=== PATIENT | female | born 1970 | race Caucasian/White ===

== ENCOUNTER 2021-01-27 16:45 | Inpatient (IN) ==
[2021-01-27] MEDS ORDERED: PIPERACILLIN/TAZOBACTAM 4.5 GM/120 ML BAG IV ONE (17:47)
[2021-01-27 18:14] LABS: Basophils # (auto) 0.01 K/uL (0-0.2); Basophils % (auto) 0.1 %; Eosinophils # (auto) 0.15 K/uL (0-0.5); Eosinophils % (auto) 2.1 %; Hematocrit (blood only) 40.9 % (37-47); Immature Granulocytes # (auto) 0.01 K/uL (0.00-0.02); Immature Granulocytes % (auto) 0.1 %; Lymphocytes # (auto) 2.21 K/uL (1.2-3.4); Mean Corpuscular Hemoglobin 25.5 pg (25-34); Mean Corpuscular Hgb Conc 31.8 g/dL (32-36); Mean Corpuscular Volume 80.2 fL (80-100); Mean Platelet Volume 9.1 fL (7.4-10.4); Monocytes % (auto) 5.6 %; Neutrophils # (auto) 4.34 K/uL (1.4-6.5); Neutrophils % (auto) 61.1 %; Platelet Count 351 K/uL (130-400); RDW Coefficient of Variation 15.4 % (11.5-14.5); RDW Standard Deviation 45.1 fL (36.4-46.3); White Blood Count 7.12 K/uL (4.8-10.8)
[2021-01-27 18:30] LABS: Partial Thromboplastin Ratio 0.9; Partial Thromboplastin Time 24.2 Seconds (21.0-31.0); Prothrombin Time 10.2 Seconds (9.0-12.0)
[2021-01-27 18:34] LABS: Albumin Level 4.5 gm/dl (3.4-5.0); BUN Creatinine Ratio 15.9 (10-20); Calcium 9.1 mg/dl (8.5-10.1); Creatinine Clr Calc Pharmacy 99.3 ml/min; Est GFR (African American) 112.4; Potassium 3.8 mmol/L (3.5-5.1)
[2021-01-27 18:36] LABS: Bilirubin,Total 0.5 mg/dl (0.2-1); Globulin 4.4 gm/dl (2.5-4.0); Total Protein 8.9 gm/dl (6.4-8.2)
[2021-01-27] MEDS ORDERED: SODIUM CHLORIDE 0.9% 1000ML 500 ML IV ONE (19:14)
--- NOTE | 2021-01-27 19:20 | History & Physical Report ---
Date of Service January 27, 2021 Assessment & Plan (1) Diverticulitis of intestine with perforation: Pt is 50 y/o F without significant past medical history presented to ER with complaint of right sided abdominal pain x 2 days. Denies fever/chills, N/V/D/C In ER pt afebrile, vitals stable 01/27/[address] ABD/PELVIS: Findings consistent with acute sigmoid diverticulitis with contained perforation. Several locules of extraluminal gas and a 1.8 cm gas and fluid containing collection suggestive of a developing peridiverticular abscess although this contains predominantly gas. No leukocytosis In ER given Zosyn -Blood cultures pending -Continue Zosyn -IV fluids -N.p.o. -General surgery consult, ER provider contacted on-call and is aware -CBC, BMP in a.m. (2) Hepatic lesion: CT ABD/PELVIS: 2.4 cm central hepatic lesion which demonstrates probable enhancement. This is not overtly suspicious but is indeterminate and a nonemergent liver MRI with and without contrast is recommended. Given diverticulitis, a hepatic abscess is within the differential although considered less likely. MRI will likely better differentiate between these two possibilities. Outpatient records reviewed patient with history CT abdomen pelvis on 01/16/2012: Impression: Mildly irregular hypodensity in the anterior right hepatic lobe demonstrating mild heterogeneous peripheral enhancement measuring 2.2 x 1.3 cm, not definitively seen on the delayed images, may represent a hemangioma. Consider an MRI of the liver with and without IV contrast for further evaluation. Scattered sigmoid diverticula. -We will obtain MRI DVT Prophylaxis -SCDs Full Code as per discussion with pt Follows with Dr Barnett for routine care Pt was seen and care coordinated with Dr Mendez. See addendum History of Present Illness Chief Complaint: Abdominal pain Primary Care Provider: Davie Barnett DO Pt is 50 y/o F without significant past medical history presented to ER with complaint of abdominal pain x 2 days. Patient reports aching pain to right side of abdomen and intermittent right upper quadrant stabbing pain with movement starting 2 days ago. Patient saw PCP yesterday. Today she had outpatient CT scan abdomen and pelvis which showed perforated diverticulitis and was referred to ER. Currently reports is comfortable sitting still. Does have pain to right side abdomen with movement. Denies nausea, vomiting, diarrhea, constipation. Patient reports history of chronic intermittent abdominal and pelvic pain prior to onset of menses however this feels different. LMP 01/20/21. Reports currently finishing menses.Denies fever/chills, diaphoresis, dizziness, syncope, vision changes, neck pain, CP, SOB, orthopnea, palpitations, cough, sore throat, choking, otalgia, rhinorrhea, paresthesias, weakness, extremity weakness, extremity edema, rashes, urinary symptoms. Allergies Allergy/AdvReac Type Severity Reaction Status Date / Time ciprofloxacin AdvReac Severe VIOLENT Verified 01/27/21 18:32 VOMITING POLLEN Allergy Intermediate RUNNY Uncoded 01/27/21 18:32 NOSE, SNEEZING Home Medications Medication Instructions Recorded Confirmed Type amoxicillin-pot clavulanate 1 tab PO BID 01/27/21 01/27/21 History cetirizine 10 mg PO DAILY PRN 01/27/21 01/27/21 History Past Med/Surg History Medical History Allergic rhinitis GERD (gastroesophageal reflux disease) Surgical History H/O umbilical hernia repair Family History Other Family history unknown Social History Smoking Status: Former smoker Tobacco Type: Cigarettes Hx Alcohol Use: Yes Alcohol Intake Frequency: Monthly or Less Hx Substance Use: No Preferred Language: Armenian Feels Safe at Home: Yes Review of Systems Review of Systems: All systems reviewed & are unremarkable except as noted in HPI & below Physical Exam Physical Exam: General: no distress, WDWN Head: normocephalic, atraumatic Eyes: conjunctiva non-injected, anicteric ENT: normal inspection external ears, nose, mucous membranes moist Neck: supple, trachea midline Lungs: clear, no respiratory distress, no wheezing/rhonchi/rales CV: RRR, no murmur, no pretibial edema Abd: normal BS, soft,mild tenderness to palpation RLQ without rebound Ext: no cyanosis, no calf tenderness Neuro: A&O x 3, no focal deficits noted, normal affect Skin: warm, dry Results & Data Results & Data ([facility]) Vital Signs (Past 12 Hours) Vital Signs Temp Pulse Pulse Resp BP BP Pulse Ox 01/27/21 19:08 69 16 132/73 97 01/27/21 18:08 18 130/81 99 01/27/21 18:06 81 19 130/81 99 01/27/21 17:07 37.1 C 79 18 123/75 98 Laboratory Results Short CBC 01/27/21 Range/Units 18:01 WBC 7.12 (4.8-10.8) K/uL Hgb 13.0 (12.0-16.0) g/dL Hct 40.9 (37-47) % Plt Count 351 (130-400) K/uL BMP 01/27/21 18:02 Sodium 139 Potassium 3.8 Chloride 107 Carbon Dioxide 26 BUN 11 Creatinine 0.72 Glucose 84 Calcium 9.1 Liver Function 01/27/21 Range/Units 18:02 Total Bilirubin 0.5 (0.2-1) mg/dl AST 9 L (15-37) U/L ALT 32 (12-78) U/L Alkaline Phosphatase 62 (45-117) U/L Albumin 4.5 (3.4-5.0) gm/dl Diagnostic Findings CT OF THE ABDOMEN AND PELVIS WITH CONTRAST CLINICAL HISTORY: Right-sided abdominal pain. Evaluate for diverticulitis. COMPARISON STUDY: None. TECHNIQUE: Following IV administration of 89 mL of Optiray, axial images of the abdomen and pelvis were obtained from the lung bases to the proximal femurs. Images were reviewed in the axial, sagittal, and coronal planes. IV contrast was administered without complication. Automated exposure control was utilized for the study. A dose lowering technique was utilized adhering to the principles of ALARA. Oral contrast was administered. CT DOSE: 885.10 mGycm FINDINGS: Lung bases are unremarkable. A 1.2 cm water attenuation inferior right hepatic lobe lesion reflects a cyst. A septated water attenuation 3 cm lateral segment lesion likely reflects a cyst. There is an indeterminate mixed attenuation 2.4 cm central hepatic lesion on image 94 of 456. This has probable enhancement. There is no biliary or pancreatic ductal dilatation. The spleen, adrenal glands, kidneys and pancreas are normal. There is no biliary or pancreatic ductal dilatation. No evidence for a bowel obstruction. The appendix is normal. Sigmoid diverticulosis is noted. There is mild wall thickening and mild infiltration adjacent to the mid sigmoid colon. A few locules of extraluminal gas are present. There is an associated 1.8 cm gas and fluid containing collection along the superior aspect of the sigmoid colon. This has a thickened wall. No acute fracture or suspicious lesion is identified within the visualized skeletal structures. There is no hydronephrosis. IMPRESSION: 1. Findings consistent with acute sigmoid diverticulitis with contained perforation. Several locules of extraluminal gas and a 1.8 cm gas and fluid containing collection suggestive of a developing peridiverticular abscess although this contains predominantly gas. 2. 2.4 cm central hepatic lesion which demonstrates probable enhancement. This is not overtly suspicious but is indeterminate and a nonemergent liver MRI with and without contrast is recommended. Given diverticulitis, a hepatic abscess is within the differential although considered less likely. MRI will likely better differentiate between these two possibilities. ACT 112: Positive. There are findings on this exam that require communication between the performing entity and the patient following Patient Test Result Information Act ([place] Act 112) guidelines. Electronically signed by: Tejinder Pagan M.D. 01/27/2021 1:16 PM Code Status & VTE Plan VTE Prophylaxis Plan VTE Prophylaxis will be ordered: Yes Supervising Physician Co-Signing Physician Notes Care coordinated with Lucia Kathleen PA-C. Agree with above note. Patient seen and examined. Please refer to her notes for full details. Vital signs reviewed. Physical exam: General exam: Alert and oriented. Not in acute distress. CVS: S1 and S2 heard, regular rate and rhythm, no murmurs. RS: Clear to auscultation, no wheezing or crackles. ABD: Soft, bowel sounds present, mild right abdomen tenderness, no distention. CLIENT SERVICES ANALYST: Nonfocal. EXT: No edema, no erythema. Labs: Reviewed. Assessment and plan: 50f with two day hx of abdominal pain and ct scan showing acute right sided diverticulitis with contained perforation Acute diverticulitis right sided npo, fluids, iv zosyn pain control Surgery consult Hepatic lesions Will follow with MRI Other diagnosis and plan of care as per Lucia Kathleen PA-C . Frank wan MD.
[2021-01-27 19:26] LABS: Influenza A virus by PCR Negative (Neg); Influenza B virus by PCR Negative (Neg); RSV by PCR Negative (Neg); SARS CoV2 RNA(COVID-19) InHosp NEGATIVE (Negative)
--- NOTE | 2021-01-27 21:18 | Surgery Consultation ---
Date of Consultation January 27, 2021 Assessment & Plan (1) Diverticulitis of intestine with perforation: Due to the patient's diverticulitis and abscess she has been admitted to the hospital on the medical service. We will proceed as follows: Maintain n.p.o. status Provide IV fluid for hydration Continue antibiotics. The patient has received her initial dose of Zosyn in the emergency department should continue Provide analgesics Provide antiemetics I discussed with the patient that ideally we would like to resolve her current infectious process prior to entertaining any surgical intervention. Once her current infection is stabilized discussion can be entertained concerning esperanza ctive surgery as the patient has had multiple episodes of diverticulitis. I have explained to her however that if emergency surgery is needed she would certainly need a colostomy and if elective procedure can be performed this can hopefully be avoided. We will continue to follow along while the patient is hospitalized. Supervising Physician Co-Signing Physician Notes History, labs and imaging reviewed, agree with above. 50 y/o female with diverticulitis with contained microperforation and possible abscess. Will plan for non operative management, patient may benefit from elective sigmoidectomy. IV abx, npo, ivf's. May need colonoscopy if hasn't had one recently. History of Present Illness Reason for Consultation: Abdominal pain History of Present Illness This is a 50-year-old female who presented to the emergency department at the recommendation of her outpatient primary care physician. The patient notes that she was diagnosed with diverticular disease in December 2019. Patient notes that since this time up to today's emergency room visit she has been on antibiotics for times, each time being for suspected diverticulitis. Patient says that she did have a colonoscopy last summer and she notes that she did have some polyps removed that were noncancerous. She was also noted to have diverticular disease but no other concerning findings were noted. Patient noted that about 48 hours ago she developed some generalized abdominal pain. She denies any fevers, shakes, chills. She denies any nausea or vomiting. She denies any diarrhea, melena, or bright blood per rectum. Notes that her bowels have been working normally. She notes that she does have a slightly decreased appetite. As of her symptomatology she sought medical care with her primary care physician who ordered a CT scan of her abdomen which was performed as an outpatient today. Patient's outpatient CT scan was independently reviewed by myself along with laboratories that were obtained in the emergency department today. The CT scan she underwent today revealed evidence of sigmoid diverticulitis with a contained perforation. With this perforation she was noted to have approximately 1.8 cm peridiverticular abscess. In addition a 2.4 cm central hepatic lesion was noted. Labs consisted of a CBC where her white blood cell count, hemoglobin, hematocrit, and platelet count were all noted be within normal range. Chemistry profile revealed her sodium, potassium, BUN, and creatinine were all within normal range. She did have a Covid test noted to be negative. At the time of my interview she is resting comfortably in bed in no distress. Allergies Allergy/AdvReac Type Severity Reaction Status Date / Time ciprofloxacin AdvReac Severe VIOLENT Verified 01/27/21 18:32 VOMITING POLLEN Allergy Intermediate RUNNY Uncoded 01/27/21 18:32 NOSE, SNEEZING Home Medications Medication Instructions Recorded Confirmed Type amoxicillin-pot clavulanate 1 tab PO BID 01/27/21 01/27/21 History cetirizine 10 mg PO DAILY PRN 01/27/21 01/27/21 History Patient History Medical History Allergic rhinitis GERD (gastroesophageal reflux disease) Surgical History H/O umbilical hernia repair Family History Other Family history unknown Social History Smoking Status: Former smoker Tobacco Type: Cigarettes Smoking End Date: 16 years ago; Hx Alcohol Use: Yes Alcohol type: beer Alcohol Intake Frequency: Monthly or Less Hx Substance Use: No Preferred Language: Zimbabwean Nailing Machine Operator Required: No Beliefs That Will Affect Care: None Current Living Situation: Spouse and Family Current Living Situation Comment: and kids Feels Safe at Home: Yes Safety Concerns: Feels Safe At This Time Assistive Devices: Glasses Review of Systems Constitutional: no fever, no chills and no fatigue Eyes: no diplopia Ear, Nose, Mouth, Throat: no ear pain Respiratory: no cough and no dyspnea Cardiovascular: no chest pain Gastrointestinal: + abdominal pain; no nausea, no vomiting, no diarrhea/loose stools and no blood in stools Genitourinary: no dysuria Musculoskeletal: no back pain Integumentary: no rash Neurologic: no generalized weakness Physical Exam Constitutional: well developed and well nourished; no acute distress Eyes: no conjunctival abnormality ENMT: Ears: no hearing impairment Neck: trachea midline Respiratory: normal respiratory effort, lungs clear to auscultation Cardiovascular: Rate/Rhythm: regular rate and regular rhythm Gastrointestinal (Abdomen): Abdomen is soft and nondistended. Bowel sounds are present. Patient did have pain with deep palpation which was greatest on the right side of her abdomen. There is no rebound tenderness or guarding. Musculoskeletal: No calf tenderness Skin: no rashes, warm and dry Neurologic: moves all extremities Psychiatric: A+Ox3, euthymic affect Results & Data ([facility]) Vital Signs (Past 12 Hours) Vital Signs Temp Pulse Pulse Resp BP BP Pulse Ox 01/27/21 20:30 61 16 118/73 98 01/27/21 19:08 69 16 132/73 97 01/27/21 18:08 18 130/81 99 01/27/21 18:06 81 19 130/81 99 01/27/21 17:07 37.1 C 79 18 123/75 98 PG Care Time/CCT Total # of Minutes Spent Total Time Spent with Patient: Total time spent is greater than 50% in coordination of care (as documented) at patient's floor/unit and/or counseling patient: Coding Level of Care Code 83324 Inpt Consult Level 5 Diagnoses Diverticulitis of intestine with perforation K57.80
[2021-01-27 21:34] LABS: Pregnancy Test, Urine Negative (Negative)
[2021-01-27] MEDS ORDERED: SODIUM CHLORIDE 0.9% 1000ML 1,000 ML IV SCH (22:20)
[2021-01-27] MEDS ORDERED: ONDANSETRON INJ 2 MG/ML 2 ML VIAL IV PRN (22:20)
[2021-01-27] MEDS ORDERED: ACETAMINOPHEN 1000 MG/100 ML IV IV PRN (22:20)
[2021-01-27] MEDS ORDERED: PIPERACILL/TAZOBAC CONSULT ACTIVE PRN (22:59)
[2021-01-27] MEDS: D5W AND NSS 1,000 ML IV SCH (23:13)
[2021-01-27] MEDS: PIPERACILLIN/TAZOBACTAM 3.375 GM in DEXTROSE 5% 100 ML IV SCH (23:54)
--- NOTE | 2021-01-28 00:29 | Emergency Department Note ---
History of Present Illness General Chief Complaint: Illness Stated Complaint: SENT BY / STOMACH PAINS Time Seen by Provider: 01/27/21 17:38 History of Present Illness Provider Complaint: abdominal pain Onset (ago): 2 day(s) Pain Consistency: constant Location: RUQ Radiation: none Severity: moderate Maximum Pain Intensity: 5 Current Pain Intensity: 5 Quality: + aching Relieved By: + nothing Exacerbated By: + nothing Context: no foreign travel, no recent antibiotic use and no recent surge ry/procedure Associated Symptoms: no nausea, no vomiting, no diarrhea, no fever, no chills, no constipation, no dysuria, no hematemesis, no hematochezia, no melena, no hematuria and no anorexia Patient states her PCP ordered her an outpatient CT scan and she was instructed to come to the emergency department. Related Data Patient Confirmed : No Home Medications Medication Instructions Recorded Confirmed Type amoxicillin-pot clavulanate 1 tab PO BID 01/27/21 01/27/21 History cetirizine 10 mg PO DAILY PRN 01/27/21 01/27/21 History Allergies Allergy/AdvReac Type Severity Reaction Status Date / Time ciprofloxacin AdvReac Severe VIOLENT Verified 01/27/21 18:32 VOMITING POLLEN Allergy Intermediate RUNNY Uncoded 01/27/21 18:32 NOSE, SNEEZING Past Med/Surg History Medical History Allergic rhinitis GERD (gastroesophageal reflux disease) Surgical History H/O umbilical hernia repair Family History Other Family history unknown Social History Smoking Status: Former smoker Tobacco Type: Cigarettes Smoking End Date: 16 years ago; Hx Alcohol Use: Yes Alcohol type: beer Alcohol Intake Frequency: Monthly or Less Hx Substance Use: No Preferred Language: Armenian 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 Beliefs That Will Affect Care: None Current Living Situation: Spouse and Family Current Living Situation Comment: and kids Feels Safe at Home: Yes Safety Concerns: Feels Safe At This Time Assistive Devices: Glasses Review of Systems A total of 10 systems reviewed and were otherwise negative Physical Exam Vital Signs: Vital Signs - 24 hr 01/27/21 17:07 01/27/21 18:06 01/27/21 18:08 Temperature 37.1 C Temperature Source Temporal Artery Sc an Pulse Rate 79 81 Pulse Rate from Sp O2 Sensor 85 Pulse Rhythm [Righ t Finger] Regular Respiratory Rate 18 19 18 Respiratory Effort / Characteristics Non-Labored Sponta neous Non-Labored Respiratory Depth Normal Normal Respiratory Patter n Regular Blood Pressure 123/75 130/81 Blood Pressure [Le ft Arm] 130/81 Blood Pressure Vidya n 91 97 Blood Pressure Vidya n [Left Arm] 97 Blood Pressure Pos ition Sitting Blood Pressure Pos ition [Left Arm] Lying Pulse Oximetry 98 99 99 Oxygen Delivery Me thod Room Air Room Air Sepsis Recent Feve r Within 48 Hours No Sepsis New/Unexpla ined Change in Men maylin Status N/A Sepsis Action Take n by Nursing No Action Required Physical Exam: Physical Exam GENERAL: She is oriented to person, place, and time. She appears well-developed and well-nourished. She does not appear distressed. HENT: Exam performed. -Head: Normocephalic and atraumatic. -Right Ear: External ear normal. No mastoid tenderness. -Left Ear: External ear normal. No mastoid tenderness. -Mouth/Throat: The oropharynx is clear and moist. No trismus in the jaw. No dental abscesses or uvula swelling. No oropharyngeal exudate or tonsillar abscesses. EYES: Conjunctivae and EOM are normal. Pupils are equal, round, and reactive to light. Right eye exhibits no discharge. Left eye exhibits no discharge. No scleral icterus. NECK: Normal range of motion. Neck supple. No JVD present. No spinous process tenderness present. No carotid bruit present. No rigidity. No tracheal deviation and normal range of motion present. No Brudzinski's sign and no Kernig's sign noted. CV: Normal rate, regular rhythm, normal heart sounds and intact distal pulses. There is no peripheral edema. Palpable radial pulses bue. PULM/CHEST: Effort normal and breath sounds normal. No respiratory distress. No stridor. She has no wheezes. She has no rales. -Chest Wall: She exhibits no tenderness. ABD: The abdomen is soft. Bowel sounds are normal. She has no distension. No mass is present. There is no tenderness. There is no rebound, no guarding, no Au's sign and no tenderness at McBurney's point. Rovsig negative MUSC/SKEL: Normal range of motion. There is no peripheral edema, tenderness or deformity. LYMPH: No cervical adenopathy. NEURO: She is alert and oriented to person, place, and time. She has normal strength. No cranial nerve deficit or sensory deficit. Coordination and gait normal. GCS eye subscore is 4. GCS verbal subscore is 5. GCS motor subscore is 6. Cerebellar tests wnl. SKIN: Skin is warm and dry. She is not diaphoretic. PSYCH: She has a normal mood and affect. Behavior is normal. Judgment and thought content normal. Course Course 1738: The patient was evaluated in room A12. A complete history and physical exam was performed Cardiac monitoring: An order was placed for continuous cardiac monitoring. The monitor shows a rate of 50 with sinus rhythm EMR reviewed. Patient had outpatient CT scan done of the abdomen today which showed sigmoid diverticulitis with contained perforation. Locules of extraluminal gas and 1.8 cm gas and fluid containing structure suggestive of a developing peridiverticular abscess which contains predominantly gas. 1748: Spoke with Dr. Hansen on-call general surgery. He states that the patient should be admitted to medicine and get IV antibiotics. No need for emergent drainage or IR evaluation at this point. Zosyn ordered for the patient. Patient will be admitted to the [facility] team spoke with Tameka who stated to admit to Dr. Mendez Administered Medications Dextrose/Sodium Chloride (D5w And Nss) 1,000 mls @ 125 mls/hr IV .Q8H VU Stop: 02/26/21 22:29 Last Admin: 01/27/21 23:13 Dose: 125 mls/hr Documented by: [id number] Piperacillin Sod/Tazobactam (Sod 3.375 gm/ Dextrose) 115 mls @ 28.75 mls/hr IV Q8H [facility]; Protocol Stop: 02/07/21 00:00 Last Admin: 01/27/21 23:54 Dose: 28.8 mls/hr Documented by: [id number] Discontinued Medications Piperacillin Sod/Tazobactam Sod (Zosyn) 4.5 gm in 120 mls @ 240 mls/hr IV NOW ONE Stop: 01/27/21 18:16 Last Infusion: 01/27/21 18:52 Dose: 0 mls/hr Documented by: [id number] Admin: 01/27/21 18:22 Dose: 240 mls/hr Documented by: [id number] Sodium Chloride (Nss 1000ml) 500 mls @ 999 mls/hr IV .Q31M ONE Stop: 01/27/21 19:44 Last Infusion: 01/27/21 20:03 Dose: 0 mls/hr Documented by: [id number] Admin: 01/27/21 19:32 Dose: 999 mls/hr Documented by: [id number] Sodium Chloride (Nss 1000ml) 1,000 mls @ 100 mls/hr IV .Q10H VU Stop: 01/28/21 18:19 Last Admin: 01/27/21 22:44 Dose: Not Given Documented by: [id number] Medical Decision Making Laboratory Data Result diagrams: 01/27/21 18:01 01/27/21 18:02 Lab Results 01/27/21 01/27/21 01/27/21 Range/Units 18:01 18:02 18:02 WBC 7.12 (4.8-10.8) K/uL RBC 5.10 (4.2-5.4) M/uL Hgb 13.0 (12.0-16.0) g/dL Hct 40.9 (37-47) % MCV 80.2 (80-100) fL MCH 25.5 (25-34) pg MCHC 31.8 L (32-36) g/dL RDW Std Deviation 45.1 (36.4-46.3) fL RDW Coeff of Elzbieta 15.4 H (11.5-14.5) % Plt Count 351 (130-400) K/uL MPV 9.1 (7.4-10.4) fL Immature Gran % (Auto) 0.1 % Neut % (Auto) 61.1 % Lymph % (Auto) 31.0 % Amite % (Auto) 5.6 % Eos % (Auto) 2.1 % Baso % (Auto) 0.1 % Neut # (Auto) 4.34 (1.4-6.5) K/uL Lymph # (Auto) 2.21 (1.2-3.4) K/uL Amite # (Auto) 0.40 (0.11-0.59) K/uL Eos # (Auto) 0.15 (0-0.5) K/uL Baso # (Auto) 0.01 (0-0.2) K/uL Immature Gran # (Auto) 0.01 (0.00-0.02) K/uL PT 10.2 (9.0-12.0) Seconds INR 1.0 (0.9-1.1) APTT 24.2 (21.0-31.0) Seconds PTT Ratio 0.9 Sodium 139 (136-145) mmol/L Potassium 3.8 (3.5-5.1) mmol/L Chloride 107 (98-107) mmol/L Carbon Dioxide 26 (21-32) mmol/L Anion Gap 6.0 (3-11) BUN 11 (7-18) mg/dl Creatinine 0.72 (0.6-1.2) mg/dl Est Cr Clr Drug Dosing 99.3 ml/min Est GFR ( Amer) 112.4 Est GFR (Non-Af Amer) 97.0 BUN/Creatinine Ratio 15.9 (10-20) Glucose 84 (70-99) mg/dl Calcium 9.1 (8.5-10.1) mg/dl Total Bilirubin 0.5 (0.2-1) mg/dl AST 9 L (15-37) U/L ALT 32 (12-78) U/L Alkaline Phosphatase 62 (45-117) U/L Total Protein 8.9 H (6.4-8.2) gm/dl Albumin 4.5 (3.4-5.0) gm/dl Globulin 4.4 H (2.5-4.0) gm/dl Albumin/Globulin Ratio 1.0 (0.9-2) Lipase 122 (73-393) U/L COVID-19 Eval Order SARS-CoV-2 (PCR) (Negative) Influenza Type A (PCR) (Neg) Influenza Type B (PCR) (Neg) RSV (RT-PCR) (Neg) 01/27/21 01/27/21 Range/Units 18:15 18:15 WBC (4.8-10.8) K/uL RBC (4.2-5.4) M/uL Hgb (12.0-16.0) g/dL Hct (37-47) % MCV (80-100) fL MCH (25-34) pg MCHC (32-36) g/dL RDW Std Deviation (36.4-46.3) fL RDW Coeff of Elzbieta (11.5-14.5) % Plt Count (130-400) K/uL MPV (7.4-10.4) fL Immature Gran % (Auto) % Neut % (Auto) % Lymph % (Auto) % Amite % (Auto) % Eos % (Auto) % Baso % (Auto) % Neut # (Auto) (1.4-6.5) K/uL Lymph # (Auto) (1.2-3.4) K/uL Amite # (Auto) (0.11-0.59) K/uL Eos # (Auto) (0-0.5) K/uL Baso # (Auto) (0-0.2) K/uL Immature Gran # (Auto) (0.00-0.02) K/uL PT (9.0-12.0) Seconds INR (0.9-1.1) APTT (21.0-31.0) Seconds PTT Ratio Sodium (136-145) mmol/L Potassium (3.5-5.1) mmol/L Chloride (98-107) mmol/L Carbon Dioxide (21-32) mmol/L Anion Gap (3-11) BUN (7-18) mg/dl Creatinine (0.6-1.2) mg/dl Est Cr Clr Drug Dosing ml/min Est GFR ( Amer) Est GFR (Non-Af Amer) BUN/Creatinine Ratio (10-20) Glucose (70-99) mg/dl Calcium (8.5-10.1) mg/dl Total Bilirubin (0.2-1) mg/dl AST (15-37) U/L ALT (12-78) U/L Alkaline Phosphatase (45-117) U/L Total Protein (6.4-8.2) gm/dl Albumin (3.4-5.0) gm/dl Globulin (2.5-4.0) gm/dl Albumin/Globulin Ratio (0.9-2) Lipase (73-393) U/L COVID-19 Eval Order CovFluRsv at [facility] SARS-CoV-2 (PCR) NEGATIVE (Negative) Influenza Type A (PCR) Negative (Neg) Influenza Type B (PCR) Negative (Neg) RSV (RT-PCR) Negative (Neg) [facility] Narrative 1738: The patient was evaluated in room A12. A complete history and physical exam was performed Cardiac monitoring: An order was placed for continuous cardiac monitoring. The monitor shows a rate of 50 with sinus rhythm EMR reviewed. Patient had outpatient CT scan done of the abdomen today which showed sigmoid diverticulitis with contained perforation. Locules of extraluminal gas and 1.8 cm gas and fluid containing structure suggestive of a developing peridiverticular abscess which contains predominantly gas. 1748: Spoke with Dr. Hansen on-call general surgery. He states that the patient should be admitted to medicine and get IV antibiotics. No need for emergent drainage or IR evaluation at this point. Zosyn ordered for the patient. Patient will be admitted to the [facility] team spoke with Tameka who stated to admit to Dr. Mendez Impression & Plan Diverticulitis of intestine with perforation Discharge Plan Visit Data Chief Complaint: Illness Stated Complaint: SENT BY DR/ STOMACH PAINS ED Provider: Marquis Haider Discharge Problem: Diverticulitis of intestine with perforation Patient Disposition: Admitted As Inpatient Discharge Instructions Interventions: ED Discharge Assessment Last Done: 01/27/21 22:14 Discharge Problem: Diverticulitis of intestine with perforation Qualifiers: Diverticulitis site: unspecified part of intestinal tract Diverticulitis bleeding: without bleeding Qualified Code(s): K57.80 - Diverticulitis of intestine, part unspecified, with perforation and abscess without bleeding
--- NOTE | 2021-01-28 06:02 | Surgery Progress Note ---
Date of Service January 28, 2021 Assessment & Plan (1) Diverticulitis of intestine with perforation: Continue management in the following fashion: Continue n.p.o. status Continue IV fluid for hydration Continue antibiotics in the form of Zosyn Continue antiemetics Continue analgesics Consideration will be given to advancing patient's diet once clinical improvement has been noted. Recommend adding DVT prevention but will defer this to the primary service Admission and Anticipated Discharge Date Admission Date: January 27, 2021 Supervising Physician Co-Signing Physician Notes Patient seen and examined, labs and imaging reviewed, agree with above. 50-year-old female admitted with diverticulitis with microperforation and possible small developing abscess. Her pain is now localized to the left lower quadrant and is still present. She had prior episodes of diverticulitis treated as an outpatient in the past, and the pain is worse during those episodes. She had a colonoscopy in April of last year in [place] which was normal except for diverticulosis. On exam she is afebrile with stable vitals. Abdomen soft, tender to palpation in the left lower quadrant with no guarding or rebound. WBC normal. Plan for continued nonoperative management. Continue IV antibiotics. Continue with bowel rest for today, may start clear liquids tomorrow if symptoms are improving. At this point we will treat clinically, I will not plan on a repeat CT scan unless her white blood cell count increases, she develops fevers or signs of worsening infection, or she fails to progress over the next few days. Subjective Patient is resting comfortably in bed. She denies any fevers, shakes, chills. She denies any nausea vomiting. She notes her abdominal pain is the same as when she was admitted and certainly no worse. She denies any flatus or BM since admission. Physical Exam Gastrointestinal (Abdomen): Abdomen is soft and nondistended. There is no rebound tenderness or guarding. Patient did have some pain noted with palpation on the right side of her abdomen. Results & Data ([facility]) Vital Signs (Past 12 Hours) Vital Signs Temp Pulse Pulse Resp BP BP Pulse Ox 01/28/21 04:00 36.4 C L 59 L 18 112/65 97 01/27/21 23:34 50 L 01/27/21 22:21 36.8 C 59 L 16 109/73 99 01/27/21 22:08 62 13 99/58 L 99 01/27/21 20:30 61 16 118/73 98 01/27/21 19:08 69 16 132/73 97 01/27/21 18:08 18 130/81 99 01/27/21 18:06 81 19 130/81 99 PG Care Time/CCT Total # of Minutes Spent Total Time Spent with Patient: Total time spent is greater than 50% in coordination of care (as documented) at patient's floor/unit and/or counseling patient: Coding Level of Care Code 01975 Subseq Hosp Care Lvl 1 Diagnoses Diverticulitis of intestine with perforation K57.80 Diverticulitis bleeding: without bleeding Diverticulitis site: unspecified part of intestinal tract (1) Diverticulitis of intestine with perforation Diverticulitis bleeding: without bleeding Diverticulitis site: unspecified part of intestinal tract Qualified Code(s): K57.80 - Diverticulitis of intestine, part unspecified, with perforation and abscess without bleeding
[2021-01-28 06:22] LABS: Basophils # (auto) 0.02 K/uL (0-0.2); Basophils % (auto) 0.4 %; Eosinophils # (auto) 0.14 K/uL (0-0.5); Hematocrit (blood only) 35.1 % (37-47); Hemoglobin 11.1 g/dL (12.0-16.0); Lymphocytes # (auto) 1.89 K/uL (1.2-3.4); Mean Corpuscular Hemoglobin 25.6 pg (25-34); Mean Corpuscular Hgb Conc 31.6 g/dL (32-36); Mean Corpuscular Volume 80.9 fL (80-100); Mean Platelet Volume 8.9 fL (7.4-10.4); Monocytes # (auto) 0.27 K/uL (0.11-0.59); Monocytes % (auto) 5.7 %; Neutrophils % (auto) 50.9 %; Platelet Count 292 K/uL (130-400); RDW Coefficient of Variation 15.6 % (11.5-14.5); RDW Standard Deviation 45.6 fL (36.4-46.3); Red Blood Count 4.34 M/uL (4.2-5.4); White Blood Count 4.72 K/uL (4.8-10.8)
[2021-01-28 07:00] LABS: BUN Creatinine Ratio 11.7 (10-20); Est GFR (African American) 108.7; Est GFR (Non-African American) 93.8; Potassium 3.6 mmol/L (3.5-5.1)
[2021-01-28] MEDS: PIPERACILLIN/TAZOBACTAM 3.375 GM in DEXTROSE 5% 100 ML IV SCH ×2 (09:00→15:36)
[2021-01-28] MEDS: D5W AND NSS 1,000 ML IV SCH ×2 (09:00→18:20)
[2021-01-28] MEDS ORDERED: LORazepam 0.5 MG/1 ML VIAL IV SCH (09:45)
[2021-01-28] MEDS ORDERED: GADOXETATE DISODIUM IV ONE (11:04)
--- NOTE | 2021-01-28 12:05 | Magnetic Resonance Report ---
MRI OF THE ABDOMEN COMBO; MRCP CLINICAL HISTORY: Acute diverticulitis. Indeterminate liver lesion seen by CT. COMPARISON STUDY: Abdominal CT dated 01/27/2021. TECHNIQUE: MRI of the abdomen is performed transverse T1 and T2-weighted sequences in the axial and c oronal planes. Contrast enhanced sequences were acquired following the IV administration of 10 cc of Eovist. Diffusion-weighted imaging and subtraction imaging were performed. High-resolution MRCP imag es were obtained. 3-D reformats are created and assessed. The examination is degraded by motion artif act. FINDINGS: Lower chest: No pleural effusion is identified. The heart is normal in size. A 1.7 cm ovoid T2 hyperi ntense focus is noted in the right breast on MRCP images (#1 of 120). Liver: The liver is enlarged, measuring 19.7 cm in length. The liver is normal in contour and signal intensity. No intrahepatic biliary ductal dilatation is seen. The hepatic veins and portal veins are patent. There is a 3.1 cm lobulated/bilobed cyst in the left lobe and a 1.1 cm cyst in the inferior r ight lobe. There is a lobulated T2 hyperintense, T1 hypointense structure in the right hepatic lobe s een on axial fiesta image #9 measuring 2.6 x 1.3 cm This shows restricted diffusion. Question minimal peripheral nodular enhancement. This is not well assessed. This lesion does appear to show progressi ve fill-in on the portal venous phases. No retention of Eovist is seen on the extended delays. There is no surrounding edema. Gallbladder/MRCP: The gallbladder is distended, and the gallbladder wall appears thickened and edemat ous. No gallstones are clearly identified. There is no intra or extrahepatic biliary ductal dilatatio n. The common bile duct measures up to 6 mm in diameter. No filling defects are seen to suggest ever docholithiasis. The pancreatic duct is normal in caliber. Spleen: Normal in size and signal intensity. Pancreas: Unremarkable. Adrenal glands: Unremarkable. Kidneys: The kidneys are normal in size and without hydronephrosis. The kidneys enhance and excrete s ymmetrically. A 0.8 cm cyst is noted in the right lower pole. Abdominal aorta: Normal in course and caliber. Bowel: Visualized portions of the small bowel and colon show no evidence of obstruction. Findings of known sigmoid diverticulitis were not included on this examination. Peritoneum: There is no abdominal ascites. Lymphadenopathy: None. Skeletal structures: Visualized skeletal structures times are normal marrow signal intensity. IMPRESSION: 1. The gallbladder is distended, and there is mild gallbladder wall thickening/edema. If there is cli nical/laboratory concern for acute cholecystitis a right upper quadrant ultrasound should be consider ed. 2. There is an indeterminant lobular appearing 2.6 cm lesion in the right lobe of the liver as detail ed above. This is pathologically indeterminant, but is not consistent with an abscess. This is nonagg ressive appearing and may represent a slightly atypical hemangioma. A 3 month follow-up MRI is recomm ended for reassessment. 3. There is a 1.7 cm ovoid T2 hyperintense lesion suggested in the right breast. This is not well aly luated and may represent a cyst. Nonemergent follow-up with mammography is recommended. ACT 112: Negative or not required by law. Electronically signed by: Andres Evans M.D. 01/28/2021 12:04 PM
--- NOTE | 2021-01-28 16:58 | Hospitalist Progress Note ---
Date of Service January 28, 2021 Assessment & Plan (1) Diverticulitis of intestine with perforation: Patent is a 50 yr female present with right sided abdominal pain x 2 days Diverticulitis with intestinal perforation Rule out acute cholecystitis - CTABD:Findings consistent with acute sigmoid diverticulitis with contained perforation. Several locules of extraluminal gas and a 1.8 cm gas and fluid containing collection suggestive of a developing peridiverticular abscess although this contains predominantly gas. 2.4 cm central hepatic lesion which demonstrates probable enhancement. This is not overtly suspicious but is indeterminate and a nonemergent liver MRI with and without contrast is recommended. Given diverticulitis, a hepatic abscess is within the differential although considered less likely. MRI will likely better differentiate between these two possibilities. -Blood cultures pending -Continue bowel rest -Continue IV Zosyn -Pain control -Obtain Gall Bladder USD -Appreciate Surgery Input (2) Hepatic lesion: Chronic Hepatic lesion as per patient CT as above --ABD MRI:The gallbladder is distended, and there is mild gallbladder wall thickening/edema. If there is clinical/laboratory concern for acute cholecystitis a right upper quadrant ultrasound should be considered. There is an indeterminant lobular appearing 2.6 cm lesion in the right lobe of the liver as detailed above. This is pathologically indeterminant, but is not consistent with an abscess. This is nonaggressive appearing and may represent a slightly atypical hemangioma. A 3 month follow-up MRI is recommended for reassessment. There is a 1.7 cm ovoid T2 hyperintense lesion suggested in the right breast. This is not well evaluated and may represent a cyst. Nonemergent follow-up with mammography is recommended. -Follow up as outpatient DVT Px: SCDs for now Code Status Full Code Admission and Anticipated Discharge Date Admission Date: January 27, 2021 Subjective Patient is seen and examined at bedside Abdominal pain is improved Denies nausea, vomiting, chest pain, shortness of breath, dizziness Offers no other complaints Review of Systems Review of Systems: All systems reviewed & are unremarkable except as noted in HPI & below Physical Exam Physical Exam: Physical Exam: Vitals signs as noted above General Appearance:Moderately built and nourished, no apparent distress Head: normocephalic, Atraumatic Eyes: normal inspection, EOMI Neck: supple, Trachea midline Respiratory/Chest: Normal breath sounds, CTA Cardiovascular: S1, S2, No murmur Abdomen/GI:Soft, LLQ, RLQ tender, Bowel sounds present Extremities/Musculoskeletal:normal inspection, no edema Neurologic/Psych:AAOX3, grossly no focal neurological deficits Skin: normal color, warm Results & Data Results & Data ([facility]) Vital Signs (Past 12 Hours) Vital Signs Temp Pulse Pulse Resp BP Pulse Ox 01/28/21 15:36 36.6 C 58 L 20 108/72 98 01/28/21 15:21 54 L 01/28/21 11:43 36.7 C 63 20 118/78 99 01/28/21 08:00 64 01/28/21 07:39 36.9 C 74 18 119/71 98 Laboratory Results Short CBC 01/27/21 01/28/21 Range/Units 18:01 06:13 WBC 7.12 4.72 L (4.8-10.8) K/uL Hgb 13.0 11.1 L (12.0-16.0) g/dL Hct 40.9 35.1 L (37-47) % Plt Count 351 292 (130-400) K/uL BMP 01/27/21 01/28/21 18:02 06:13 Sodium 139 142 Potassium 3.8 3.6 Chloride 107 111 H Carbon Dioxide 26 28 BUN 11 9 Creatinine 0.72 0.74 Glucose 84 110 H Calcium 9.1 8.0 L Liver Function 01/27/21 Range/Units 18:02 Total Bilirubin 0.5 (0.2-1) mg/dl AST 9 L (15-37) U/L ALT 32 (12-78) U/L Alkaline Phosphatase 62 (45-117) U/L Albumin 4.5 (3.4-5.0) gm/dl (1) Diverticulitis of intestine with perforation Diverticulitis bleeding: without bleeding Diverticulitis site: unspecified part of intestinal tract Qualified Code(s): K57.80 - Diverticulitis of intestine, part unspecified, with perforation and abscess without bleeding
--- NOTE | 2021-01-28 18:06 | Ultrasound Report ---
ULTRASOUND RIGHT UPPER QUADRANT ABDOMEN CLINICAL HISTORY: Abnormal MRI. Gallbladder wall thickening. COMPARISON STUDY: Abdominal CT dated 01/27/2021. Abdominal MRI dated 01/28/2021. TECHNIQUE: Real-time, grayscale, and color flow sonography of the right upper quadrant of the abdomen was performed. Images are reviewed in the transverse and longitudinal planes. FINDINGS: Liver: The liver is mildly enlarged. Echotexture is normal. There is no intrahepatic biliary ductal d ilatation. The main portal vein is patent. A 2.8 cm bilobed cyst is again seen in the left lobe, and a 1.1 cm cyst is noted in the inferior right lobe. A 2.6 cm lobulated echogenic structure is identifi ed in the right lobe. This likely represents a hemangioma. Gallbladder: The gallbladder is distended, and the gallbladder wall appears thickened and edematous m easuring up to 5 mm. No shadowing gallstones are identified. No pericystic fluid is identified and a sonographic Ua's sign is reportedly absent. The common bile duct measures up to 0.4 cm in diamete r. Pancreas: Visualized portions of the pancreatic head and body are normal in appearance. The splenic v ein is patent. Right kidney: Survey images of the right kidney demonstrate normal size and echotexture. There is no hydronephrosis. Ascites: None. IMPRESSION: 1. The gallbladder is distended with a thickened and edematous wall. No shadowing gallstones are iden tified and a sonographic Au sign is reportedly absent. Findings are equivocal for acute acalculou s cholecystitis which is not excluded. If there is strong clinical concern for acute cholecystitis a nuclear hepatobiliary scan could be obtained to assess for patency of the cystic duct. 2. The 2.6 cm lobulated lesion in the right lobe is homogeneously echogenic, further supporting that this likely represents a benign hemangioma. 3. Additional findings as above. ACT 112: Negative or not required by law. Electronically signed by: Andres Evans M.D. 01/28/2021 6:04 PM
[2021-01-29] MEDS: PIPERACILLIN/TAZOBACTAM 3.375 GM in DEXTROSE 5% 100 ML IV SCH ×3 (01:17→16:32)
[2021-01-29] MEDS: D5W AND NSS 1,000 ML IV SCH ×3 (02:32→16:33)
--- NOTE | 2021-01-29 05:54 | Surgery Progress Note ---
Date of Service January 29, 2021 Assessment & Plan (1) Diverticulitis of intestine with perforation: Will continue management in the following fashion: Continue n.p.o. status Continue IV fluid for hydration Continue antibiotics in the form of Zosyn Continue antiemetics Continue analgesics Since admission the patient has had an MRI of her abdomen along with a gallbladder ultrasound. Both of these studies showed that the gallbladder is distended with some thickening of the gallbladder wall however no gallstones are noted. We will consider obtaining a HIDA scan to further evaluate for the presence of cholecystitis. Recommend adding DVT prevention but will defer this to the primary service Admission and Anticipated Discharge Date Admission Date: January 27, 2021 Supervising Physician Co-Signing Physician Notes Patient seen and examined, labs and imaging reviewed, agree with above. Admitted for diverticulitis with possible small abscess and microperforation. She is essentially stable, her pain may be slightly better than upon arrival. She had an MRI yesterday to assess a lesion on her liver and this was confirmed to unlikely be an abscess. Her gallbladder was noted to be distended. She did initially present to her PCP with some right upper quadrant pain, whether this was related to her gallbladder is difficult to determine. Her distended gallbladder may be to her period of time n.p.o. or her gallbladder may not be functioning well secondary to the inflammation of her colon. I do not feel a HIDA scan is warranted at this time as it will not change her management. We will be unlikely to perform a cholecystectomy on someone who has an active diverticulitis with possible abscess. On exam she is afebrile with stable vitals. She has some tenderness to palpation in the left lower quadrant that this seems slightly improved. Her white blood cell count continues to be normal. At this point we will advance her to clear liquids, continue IV antibiotics for at least another 24 hours. If she begins to show clinical improvement then we will potentially transition her to oral antibiotics and consider discharge in the next 24 to 48 hours. I would obtain follow-up imaging only if she fails to improve or if she clinically deteriorates. Her gallbladder can be worked up as an outpatient once she is over this initial infection, and consideration could be given to cholecystectomy if she desires sigmoidectomy. Subjective Patient denies any worsening abdominal pain. She denies any nausea vomiting. She has not had a bowel movement since admission. She denies any fevers, shakes, chills. She continues to have some minor abdominal pain letter to time of presentation which appears to be greatest on the right side without modifying factors. Physical Exam Constitutional: well developed and well nourished; no acute distress Respiratory: normal respiratory effort; no respiratory distress and no labored breathing Gastrointestinal (Abdomen): Abdomen is soft and nondistended. Bowel sounds are present. There is no rebound tenderness or guarding. There is pain noted with palpation greatest on the right side of the abdomen. Small amount of tenderness is noted with palpation in the left lower quadrant. Results & Data ([facility]) Vital Signs (Past 12 Hours) Vital Signs Temp Pulse Pulse Resp BP Pulse Ox 01/29/21 03:00 36.7 C 79 20 99/65 L 98 01/29/21 01:44 54 L 01/28/21 23:00 36.8 C 65 18 111/72 98 01/28/21 19:00 36.7 C 62 20 113/75 98 PG Care Time/CCT Total # of Minutes Spent Total Time Spent with Patient: Total time spent is greater than 50% in coordination of care (as documented) at patient's floor/unit and/or counseling patient: Coding Level of Care Code 38111 Subseq Hosp Care Lvl 1 Diagnoses Diverticulitis of intestine with perforation K57.80 Diverticulitis bleeding: without bleeding Diverticulitis site: unspecified part of intestinal tract (1) Diverticulitis of intestine with perforation Diverticulitis bleeding: without bleeding Diverticulitis site: unspecified part of intestinal tract Qualified Code(s): K57.80 - Diverticulitis of intestine, part unspecified, with perforation and abscess without bleeding
[2021-01-29 06:26] LABS: Hematocrit (blood only) 35.1 % (37-47); Hemoglobin 11.1 g/dL (12.0-16.0); Mean Corpuscular Hemoglobin 25.5 pg (25-34); Mean Corpuscular Hgb Conc 31.6 g/dL (32-36); Mean Corpuscular Volume 80.5 fL (80-100); Mean Platelet Volume 8.7 fL (7.4-10.4); Platelet Count 274 K/uL (130-400); RDW Coefficient of Variation 15.5 % (11.5-14.5); RDW Standard Deviation 45.7 fL (36.4-46.3); Red Blood Count 4.36 M/uL (4.2-5.4); White Blood Count 4.54 K/uL (4.8-10.8)
[2021-01-29 06:54] LABS: BUN Creatinine Ratio 8.3 (10-20); Creatinine Clr Calc Pharmacy 103.9 ml/min; Est GFR (African American) 116.8; Est GFR (Non-African American) 100.8; Magnesium 2.3 mg/dl (1.8-2.4); Potassium 3.5 mmol/L (3.5-5.1)
--- NOTE | 2021-01-29 07:49 | Electrocardiogram Report ---
Test Reason : Blood Pressure : / mmHG Vent. Rate : 064 BPM Atrial Rate : 064 BPM P-R Int : 212 ms QRS Dur : 082 ms QT Int : 408 ms P-R-T Axes : 046 000 028 degrees QTc Int : 420 ms Sinus rhythm with 1st degree A-V block Otherwise normal ECG No previous ECGs available Confirmed by Ej Galindo ([id number]) on 01/29/2021 7:49:22 AM Referred By: Davie Barnett Confirmed By:Ej Galindo
[2021-01-29] MEDS: ENOXAPARIN INJ 40 MG/0.4 ML SYR SQ SCH (17:00)
--- NOTE | 2021-01-29 18:18 | Hospitalist Progress Note ---
Date of Service January 29, 2021 Assessment & Plan (1) Diverticulitis of intestine with perforation: Patent is a 50 yr female present with right sided abdominal pain x 2 days Diverticulitis with intestinal perforation Rule out acute cholecystitis - CT ABD:Findings consistent with acute sigmoid diverticulitis with contained perforation. Several locules of extraluminal gas and a 1.8 cm gas and fluid containing collection suggestive of a developing peridiverticular abscess although this contains predominantly gas. 2.4 cm central hepatic lesion which demonstrates probable enhancement. This is not overtly suspicious but is indeterminate and a nonemergent liver MRI with and without contrast is recommended. Given diverticulitis, a hepatic abscess is within the differential although considered less likely. MRI will likely better differentiate between these two possibilities. -Gall Bladder USD:The gallbladder is distended with a thickened and edematous wall. No shadowing gallstones are identified and a sonographic Au sign is reportedly absent. Findings are equivocal for acute acalculous cholecystitis which is not excluded. If there is strong clinical concern for acute cholecystitis a nuclear hepatobiliary scan could be obtained to assess for patency of the cystic duct. The 2.6 cm lobulated lesion in the right lobe is homogeneously echogenic, further supporting that this likely represents a benign hemangioma. -No indication for HIDA scan given no change in management -Blood cultures: Negative to date -Continue clear liquid diet -Continue IV Zosyn -Pain control -Appreciate Surgery Input -Decrease IV fluids (2) Hepatic lesion: Chronic Hepatic lesion as per patient CT as above --ABD MRI:The gallbladder is distended, and there is mild gallbladder wall thickening/edema. If there is clinical/laboratory concern for acute cholecystitis a right upper quadrant ultrasound should be considered. There is an indeterminant lobular appearing 2.6 cm lesion in the right lobe of the liver as detailed above. This is pathologically indeterminant, but is not consistent with an abscess. This is nonaggressive appearing and may represent a slightly atypical hemangioma. A 3 month follow-up MRI is recommended for reassessment. There is a 1.7 cm ovoid T2 hyperintense lesion suggested in the right breast. This is not well evaluated and may represent a cyst. Nonemergent follow-up with mammography is recommended. -Follow up as outpatient DVT Px: Lovenox SQ Code Status Full Code Admission and Anticipated Discharge Date Admission Date: January 27, 2021 Subjective Patient is seen and examined at bedside Abdominal pain better today Tolerating diet Denies nausea, vomiting No new complaints Also denies chest pain, shortness of breath, dizziness Review of Systems Review of Systems: All systems reviewed & are unremarkable except as noted in HPI & below Physical Exam Physical Exam: Physical Exam: Vitals signs as noted above General Appearance:Moderately built and nourished, no apparent distress Head: normocephalic, Atraumatic Eyes: normal inspection, EOMI Neck: supple, Trachea midline Respiratory/Chest: Normal breath sounds, CTA Cardiovascular: S1, S2, No murmur Abdomen/GI:Soft, non tender, Bowel sounds present Extremities/Musculoskeletal:normal inspection, no edema Neurologic/Psych:AAOX3, grossly no focal neurological deficits Skin: normal color, warm Results & Data Results & Data ([facility]) Vital Signs (Past 12 Hours) Vital Signs Temp Pulse Pulse Resp BP Pulse Ox 01/29/21 16:00 70 01/29/21 15:02 36.7 C 55 L 18 113/80 99 01/29/21 11:00 37.1 C 63 22 115/77 98 01/29/21 08:21 59 L 01/29/21 07:00 36.8 C 65 20 112/75 99 Laboratory Results Short CBC 01/29/21 Range/Units 06:07 WBC 4.54 L (4.8-10.8) K/uL Hgb 11.1 L (12.0-16.0) g/dL Hct 35.1 L (37-47) % Plt Count 274 (130-400) K/uL BMP 01/29/21 06:07 Sodium 144 Potassium 3.5 Chloride 114 H Carbon Dioxide 25 BUN 6 L Creatinine 0.69 Glucose 111 H Calcium 8.0 L (1) Diverticulitis of intestine with perforation Diverticulitis bleeding: without bleeding Diverticulitis site: unspecified part of intestinal tract Qualified Code(s): K57.80 - Diverticulitis of intestine, part unspecified, with perforation and abscess without bleeding
[2021-01-29] MEDS ORDERED: CALCIUM CARBONATE 500 MG CHEWABLE TAB PO STA (22:32)
[2021-01-30] MEDS: PIPERACILLIN/TAZOBACTAM 3.375 GM in DEXTROSE 5% 100 ML IV SCH ×3 (00:27→16:37)
[2021-01-30] MEDS: D5W AND NSS 1,000 ML IV SCH ×3 (03:23→21:33)
[2021-01-30 07:43] LABS: Hematocrit (blood only) 36.4 % (37-47); Hemoglobin 11.7 g/dL (12.0-16.0); Mean Corpuscular Hemoglobin 25.8 pg (25-34); Mean Corpuscular Hgb Conc 32.1 g/dL (32-36); Mean Corpuscular Volume 80.4 fL (80-100); Mean Platelet Volume 8.7 fL (7.4-10.4); Platelet Count 272 K/uL (130-400); RDW Coefficient of Variation 15.4 % (11.5-14.5); RDW Standard Deviation 44.9 fL (36.4-46.3); Red Blood Count 4.53 M/uL (4.2-5.4); White Blood Count 4.63 K/uL (4.8-10.8)
[2021-01-30 08:11] LABS: BUN Creatinine Ratio 4.2 (10-20); Calcium 8.8 mg/dl (8.5-10.1); Creatinine Clr Calc Pharmacy 90.5 ml/min; Est GFR (African American) 100.5; Est GFR (Non-African American) 86.7; Potassium 3.5 mmol/L (3.5-5.1)
[2021-01-30] MEDS: ENOXAPARIN INJ 40 MG/0.4 ML SYR SQ SCH (08:27)
--- NOTE | 2021-01-30 10:49 | Surgery Progress Note ---
Date of Service January 30, 2021 Assessment & Plan (1) Diverticulitis of intestine with perforation: on Zosyn WBC normal will begin advancing diet Admission and Anticipated Discharge Date Admission Date: January 27, 2021 Supervising Physician Co-Signing Physician Notes Patient seen and examined, labs reviewed, agree with above. 50-year-old female admitted with acute diverticulitis with microperforation and small abscess. Overall feeling slightly better, still some soreness with movement. On exam she is afebrile stable vitals. Mild tenderness to palpation in the left lower quadrant with no guarding, improved from yesterday. WBC remains stable. We will advance to full liquids today, likely low fiber tomorrow. She will need 10 to 14 days of antibiotics as an outpatient. She is considering elective sigmoidectomy due to history of multiple episodes over the past few years. I think this is reasonable and she can follow-up as an outpatient. She had a colonoscopy not too long ago but may need to visit with GI in case they would prefer to do another colonoscopy prior to resection. Subjective some heartburn, on clears, feeling about the same, some soreness Physical Exam Gastrointestinal (Abdomen): Inspection/Auscultation: abdomen not distended Percussion/Palpation: abdomen soft; abdomen nontender Results & Data ([facility]) Vital Signs (Past 12 Hours) Vital Signs Temp Pulse Pulse Resp BP Pulse Ox 01/30/21 07:43 44 L 01/30/21 03:20 36.5 C 54 L 18 106/55 L 93 01/30/21 00:00 50 L 01/29/21 23:38 36.6 C 50 L 16 101/63 98 PG Care Time/CCT Total # of Minutes Spent Total Time Spent with Patient: Total time spent is greater than 50% in coordination of care (as documented) at patient's floor/unit and/or counseling patient: Coding Level of Care Code 78904 Subseq Hosp Care Lvl 1 Diagnoses Diverticulitis of intestine with perforation K57.80 Diverticulitis bleeding: without bleeding Diverticulitis site: unspecified part of intestinal tract (1) Diverticulitis of intestine with perforation Diverticulitis bleeding: without bleeding Diverticulitis site: unspecified part of intestinal tract Qualified Code(s): K57.80 - Diverticulitis of intestine, part unspecified, with perforation and abscess without bleeding
[2021-01-30] MEDS: DICLOFENAC SOD 1% GEL 100 GM TUBE EXT SCH ×2 (12:13→21:33)
--- NOTE | 2021-01-30 16:33 | Hospitalist Progress Note ---
Date of Service January 30, 2021 Assessment & Plan (1) Diverticulitis of intestine with perforation: Patent is a 50 yr female present with right sided abdominal pain x 2 days Diverticulitis with intestinal perforation Rule out acute cholecystitis - CT ABD:Findings consistent with acute sigmoid diverticulitis with contained perforation. Several locules of extraluminal gas and a 1.8 cm gas and fluid containing collection suggestive of a developing peridiverticular abscess although this contains predominantly gas. 2.4 cm central hepatic lesion which demonstrates probable enhancement. This is not overtly suspicious but is indeterminate and a nonemergent liver MRI with and without contrast is recommended. Given diverticulitis, a hepatic abscess is within the differential although considered less likely. MRI will likely better differentiate between these two possibilities. -Gall Bladder USD:The gallbladder is distended with a thickened and edematous wall. No shadowing gallstones are identified and a sonographic Au sign is reportedly absent. Findings are equivocal for acute acalculous cholecystitis which is not excluded. If there is strong clinical concern for acute cholecystitis a nuclear hepatobiliary scan could be obtained to assess for patency of the cystic duct. The 2.6 cm lobulated lesion in the right lobe is homogeneously echogenic, further supporting that this likely represents a benign hemangioma. -No indication for HIDA scan given no change in management -Blood cultures: Negative to date -Continue IV Zosyn -Pain control -Appreciate Surgery Input -continue IV fluids -Advance to full liquid diet today -Plan to advance to low fiber diet tomorrow if continues to improve clinically (2) Hepatic lesion: Chronic Hepatic lesion as per patient CT as above --ABD MRI:The gallbladder is distended, and there is mild gallbladder wall thickening/edema. If there is clinical/laboratory concern for acute cholecystitis a right upper quadrant ultrasound should be considered. There is an indeterminant lobular appearing 2.6 cm lesion in the right lobe of the liver as detailed above. This is pathologically indeterminant, but is not consistent with an abscess. This is nonaggressive appearing and may represent a slightly atypical hemangioma. A 3 month follow-up MRI is recommended for reassessment. There is a 1.7 cm ovoid T2 hyperintense lesion suggested in the right breast. This is not well evaluated and may represent a cyst. Nonemergent follow-up with mammography is recommended. -Follow up as outpatient DVT Px: Lovenox SQ Code Status Full Code Admission and Anticipated Discharge Date Admission Date: January 27, 2021 Subjective Patient is seen and examined at bedside Abdominal pain much improved Afebrile Tolerating clear liquid diet No new complaints Denies chest pain, shortness of breath, dizziness, nausea, vomiting Review of Systems Review of Systems: All systems reviewed & are unremarkable except as noted in HPI & below Physical Exam Physical Exam: Physical Exam: Vitals signs as noted above General Appearance:Moderately built and nourished, no apparent distress Head: normocephalic, Atraumatic Eyes: normal inspection, EOMI Neck: supple, Trachea midline Respiratory/Chest: Normal breath sounds, CTA Cardiovascular: S1, S2, No murmur Abdomen/GI:Soft, non tender, Bowel sounds present Extremities/Musculoskeletal:normal inspection, no edema Neurologic/Psych:AAOX3, grossly no focal neurological deficits Skin: normal color, warm Results & Data Results & Data ([facility]) Vital Signs (Past 12 Hours) Vital Signs Temp Pulse Pulse Resp BP Pulse Ox 01/30/21 15:57 36.3 C L 55 L 20 107/71 98 01/30/21 15:08 57 L 01/30/21 12:00 36.7 C 66 22 120/76 95 01/30/21 07:43 44 L Laboratory Results Short CBC 01/30/21 Range/Units 07:28 WBC 4.63 L (4.8-10.8) K/uL Hgb 11.7 L (12.0-16.0) g/dL Hct 36.4 L (37-47) % Plt Count 272 (130-400) K/uL BMP 01/30/21 07:28 Sodium 141 Potassium 3.5 Chloride 110 H Carbon Dioxide 25 BUN 3 L Creatinine 0.79 Glucose 102 H Calcium 8.8 (1) Diverticulitis of intestine with perforation Diverticulitis bleeding: without bleeding Diverticulitis site: unspecified part of intestinal tract Qualified Code(s): K57.80 - Diverticulitis of intestine, part unspecified, with perforation and abscess without bleeding
[2021-01-31] MEDS: PIPERACILLIN/TAZOBACTAM 3.375 GM in DEXTROSE 5% 100 ML IV SCH ×3 (01:10→16:09)
[2021-01-31] MEDS: D5W AND NSS 1,000 ML IV SCH ×2 (08:44→19:00)
[2021-01-31] MEDS: ENOXAPARIN INJ 40 MG/0.4 ML SYR SQ SCH (08:44)
[2021-01-31] MEDS: DICLOFENAC SOD 1% GEL 100 GM TUBE EXT SCH ×3 (08:44→21:58)
[2021-01-31 09:02] LABS: BUN Creatinine Ratio 3.7 (10-20); Calcium 9.1 mg/dl (8.5-10.1); Est GFR (African American) 97.5; Est GFR (Non-African American) 84.1; Potassium 3.6 mmol/L (3.5-5.1)
[2021-01-31] MEDS ORDERED: oxyCODONE HCL IR 5 MG TAB (IMMEDIATE RELEASE) PO PRN (11:19)
[2021-01-31] MEDS ORDERED: IBUPROFEN 600 MG TAB PO PRN (11:19)
--- NOTE | 2021-01-31 11:22 | Surgery Progress Note ---
Date of Service January 31, 2021 Assessment & Plan (1) Diverticulitis of intestine with perforation: on Zosyn low fiber/fat diet hopefully home soon with f/u in surgery clinic labs in AM seen with Dr. Hansen Admission and Anticipated Discharge Date Admission Date: January 27, 2021 Supervising Physician Co-Signing Physician Notes Patient seen and examined, labs reviewed, agree with above. 50-year-old female admitted with acute diverticulitis with microperforation and small abscess. Overall feeling slightly better, though she did have some increased pain overnight. On exam she is afebrile stable vitals. Minimal tenderness to palpation in the left lower quadrant with no guarding, slightly improved from yesterday. We will advance to low fiber diet today. Repeat labs tomorrow morning. She will need 10 to 14 days of antibiotics as an outpatient. She is considering elective sigmoidectomy due to history of multiple episodes over the past few years. I think this is reasonable and she can follow-up as an outpatient. She had a colonoscopy not too long ago but may need to visit with GI in case they would prefer to do another colonoscopy prior to resection. Subjective some LLQ pain last night after eating, BM after full liquids Physical Exam Gastrointestinal (Abdomen): Inspection/Auscultation: abdomen not distended Percussion/Palpation: + abdomen tender (mild LLQ) and abdomen soft Results & Data ([facility]) Vital Signs (Past 12 Hours) Vital Signs Temp Pulse Pulse Resp BP Pulse Ox 01/31/21 11:09 37.1 C 72 18 110/61 99 01/31/21 08:00 50 L 01/31/21 07:36 37.0 C 55 L 16 101/67 98 01/31/21 04:06 36.8 C 77 18 99/64 L 98 01/31/21 00:00 53 L PG Care Time/CCT Total # of Minutes Spent Total Time Spent with Patient: Total time spent is greater than 50% in coordination of care (as documented) at patient's floor/unit and/or counseling patient: Coding Level of Care Code 56640 Subseq Hosp Care Lvl 1 Diagnoses Diverticulitis of intestine with perforation K57.80 Diverticulitis bleeding: without bleeding Diverticulitis site: unspecified part of intestinal tract (1) Diverticulitis of intestine with perforation Diverticulitis bleeding: without bleeding Diverticulitis site: unspecified part of intestinal tract Qualified Code(s): K57.80 - Diverticulitis of intestine, part unspecified, with perforation and abscess without bleeding
--- NOTE | 2021-01-31 17:02 | Hospitalist Progress Note ---
Date of Service January 31, 2021 Assessment & Plan (1) Diverticulitis of intestine with perforation: Patent is a 50 yr female present with right sided abdominal pain x 2 days Diverticulitis with intestinal perforation Rule out acute cholecystitis - CT ABD:Findings consistent with acute sigmoid diverticulitis with contained perforation. Several locules of extraluminal gas and a 1.8 cm gas and fluid containing collection suggestive of a developing peridiverticular abscess although this contains predominantly gas. 2.4 cm central hepatic lesion which demonstrates probable enhancement. This is not overtly suspicious but is indeterminate and a nonemergent liver MRI with and without contrast is recommended. Given diverticulitis, a hepatic abscess is within the differential although considered less likely. MRI will likely better differentiate between these two possibilities. -Gall Bladder USD:The gallbladder is distended with a thickened and edematous wall. No shadowing gallstones are identified and a sonographic Au sign is reportedly absent. Findings are equivocal for acute acalculous cholecystitis which is not excluded. If there is strong clinical concern for acute cholecystitis a nuclear hepatobiliary scan could be obtained to assess for patency of the cystic duct. The 2.6 cm lobulated lesion in the right lobe is homogeneously echogenic, further supporting that this likely represents a benign hemangioma. -No indication for HIDA scan given no change in management -Blood cultures: Negative to date -Continue IV Zosyn -Pain control -Appreciate Surgery Input -On IV fluids -Advanced to low fiber diet today -Needs follow-up with surgery upon discharge (2) Hepatic lesion: Chronic Hepatic lesion as per patient CT as above --ABD MRI:The gallbladder is distended, and there is mild gallbladder wall thickening/edema. If there is clinical/laboratory concern for acute cholecystitis a right upper quadrant ultrasound should be considered. There is an indeterminant lobular appearing 2.6 cm lesion in the right lobe of the liver as detailed above. This is pathologically indeterminant, but is not consistent with an abscess. This is nonaggressive appearing and may represent a slightly atypical hemangioma. A 3 month follow-up MRI is recommended for reassessment. There is a 1.7 cm ovoid T2 hyperintense lesion suggested in the right breast. This is not well evaluated and may represent a cyst. Nonemergent follow-up with mammography is recommended. -Follow up as outpatient DVT Px: Lovenox SQ Code Status Full Code Admission and Anticipated Discharge Date Admission Date: January 27, 2021 Subjective Patient is seen and examined at bedside States having moderate pain overnight which improved this morning No other complaints Tolerating diet today Denies chest pain, shortness of breath, dizziness, nausea, vomiting Review of Systems Review of Systems: All systems reviewed & are unremarkable except as noted in HPI & below Physical Exam Physical Exam: Physical Exam: Vitals signs as noted above General Appearance:Moderately built and nourished, no apparent distress Head: normocephalic, Atraumatic Eyes: normal inspection, EOMI Neck: supple, Trachea midline Respiratory/Chest: Normal breath sounds, CTA Cardiovascular: S1, S2, No murmur Abdomen/GI:Soft, mild LLQ tender, Bowel sounds present Extremities/Musculoskeletal:normal inspection, no edema Neurologic/Psych:AAOX3, grossly no focal neurological deficits Skin: normal color, warm Results & Data Results & Data ([facility]) Vital Signs (Past 12 Hours) Vital Signs Temp Pulse Pulse Resp BP Pulse Ox 01/31/21 16:30 61 01/31/21 15:22 37.0 C 60 18 102/69 97 01/31/21 11:09 37.1 C 72 18 110/61 99 01/31/21 08:00 50 L 01/31/21 07:36 37.0 C 55 L 16 101/67 98 Laboratory Results [facility] 01/31/21 08:12 Sodium 141 Potassium 3.6 Chloride 110 H Carbon Dioxide 25 BUN 3 L Creatinine 0.81 Glucose 91 Calcium 9.1 (1) Diverticulitis of intestine with perforation Diverticulitis bleeding: without bleeding Diverticulitis site: unspecified part of intestinal tract Qualified Code(s): K57.80 - Diverticulitis of intestine, part unspecified, with perforation and abscess without bleeding
[2021-02-01] MEDS: PIPERACILLIN/TAZOBACTAM 3.375 GM in DEXTROSE 5% 100 ML IV SCH ×2 (00:30→08:29)
[2021-02-01 07:27] LABS: Hematocrit (blood only) 34.9 % (37-47); Hemoglobin 11.4 g/dL (12.0-16.0); Mean Corpuscular Hemoglobin 25.8 pg (25-34); Mean Corpuscular Hgb Conc 32.7 g/dL (32-36); Mean Platelet Volume 8.9 fL (7.4-10.4); Platelet Count 283 K/uL (130-400); RDW Coefficient of Variation 15.7 % (11.5-14.5); RDW Standard Deviation 45.2 fL (36.4-46.3); Red Blood Count 4.42 M/uL (4.2-5.4); White Blood Count 4.97 K/uL (4.8-10.8)
[2021-02-01 07:50] LABS: BUN Creatinine Ratio 5.8 (10-20); Calcium 8.5 mg/dl (8.5-10.1); Creatinine Clr Calc Pharmacy 98.4 ml/min; Est GFR (African American) 110.5; Est GFR (Non-African American) 95.4; Magnesium 2.2 mg/dl (1.8-2.4); Potassium 3.5 mmol/L (3.5-5.1)
[2021-02-01] MEDS: D5W AND NSS 1,000 ML IV SCH (08:29)
[2021-02-01] MEDS: DICLOFENAC SOD 1% GEL 100 GM TUBE EXT SCH (08:29)
[2021-02-01] MEDS: ENOXAPARIN INJ 40 MG/0.4 ML SYR SQ SCH (08:30)
--- NOTE | 2021-02-01 09:44 | Surgery Progress Note ---
Date of Service February 01, 2021 Assessment & Plan (1) Diverticulitis of intestine with perforation: Patient improving each day WBC 4.9, Afebrile She does report some RUQ/Epigastric pain overnight after dinner, but took some tums and was able to sleep Her LLQ pain is overall improved Patient should complete a course of po abx for 10-14 days as outpatient We will ask patient to follow up with Dr. Hansen in clinic within a couple of weeks for further discussion of elective sigmoidectomy and +/- cholecystectomy planning Admission and Anticipated Discharge Date Admission Date: January 27, 2021 Supervising Physician Co-Signing Physician Notes Patient seen and examined, labs reviewed, agree with above. 50-year-old female admitted with acute diverticulitis with microperforation and small abscess. Feeling better today, had some right upper quadrant pain overnight. She is tolerating a low fiber diet. On exam afebrile stable vitals, nontender. WBC normal. Plan to DC to home on oral antibiotics, low fiber diet. Follow-up in clinic to discuss elective sigmoidectomy. We will likely order an outpatient HIDA scan with ejection fraction if she continues to have right upper quadrant postprandial pain. Subjective Patient feeling well this AM. She does endorse an episode of GB pain overnight after eating dinner (pork and green beans). She took some tums with mild relief. She reports her pain from diverticulitis is improving each day. This AM she opted for a protein shake for bfast. Physical Exam Physical Exam: awake/alert Constitutional: no acute distress Gastrointestinal (Abdomen): Percussion/Palpation: + abdomen tender (mild discomfort to palpation in the llq) and abdomen soft Results & Data ([facility]) Vital Signs (Past 12 Hours) Vital Signs Temp Pulse Pulse Resp BP BP Pulse Ox 02/01/21 07:31 36.8 C 73 20 129/81 92 02/01/21 04:03 36.6 C 53 L 18 92/55 L 98 01/31/21 23:25 52 L 01/31/21 23:22 36.6 C 54 L 20 108/70 98 PG Care Time/CCT Total # of Minutes Spent Total Time Spent with Patient: Total time spent is greater than 50% in coordination of care (as documented) at patient's floor/unit and/or counseling patient: Coding Level of Care Code 00965 Subseq Hosp Care Lvl 1 Diagnoses Diverticulitis of intestine with perforation K57.80 Diverticulitis bleeding: without bleeding Diverticulitis site: unspecified part of intestinal tract (1) Diverticulitis of intestine with perforation Diverticulitis bleeding: without bleeding Diverticulitis site: unspecified part of intestinal tract Qualified Code(s): K57.80 - Diverticulitis of intestine, part unspecified, with perforation and abscess without bleeding
--- NOTE | 2021-02-01 10:49 | Discharge Summary ---
Date of Service February 01, 2021 Admission HPI Per Admitting Provider Pt is 50 y/o F without significant past medical history presented to ER with complaint of abdominal pain x 2 days. Patient reports aching pain to right side of abdomen and intermittent right upper quadrant stabbing pain with movement starting 2 days ago. Patient saw PCP yesterday. Today she had outpatient CT scan abdomen and pelvis which showed perforated diverticulitis and was referred to ER. Currently reports is comfortable sitting still. Does have pain to right side abdomen with movement. Denies nausea, vomiting, diarrhea, constipation. Patient reports history of chronic intermittent abdominal and pelvic pain prior to onset of menses however this feels different. LMP 01/20/21. Reports currently finishing menses.Denies fever/chills, diaphoresis, dizziness, syncope, vision changes, neck pain, CP, SOB, orthopnea, palpitations, cough, sore throat, choking, otalgia, rhinorrhea, paresthesias, weakness, extremity weakness, extremity edema, rashes, urinary symptoms. Admission Exam Per Admitting Provider General: no distress, WDWN Head: normocephalic, atraumatic Eyes: conjunctiva non-injected, anicteric ENT: normal inspection external ears, nose, mucous membranes moist Neck: supple, trachea midline Lungs: clear, no respiratory distress, no wheezing/rhonchi/rales CV: RRR, no murmur, no pretibial edema Abd: normal BS, soft,mild tenderness to palpation RLQ without rebound Ext: no cyanosis, no calf tenderness Neuro: A&O x 3, no focal deficits noted, normal affect Skin: warm, dry Principal Diagnosis (1) Diverticulitis of intestine with perforation: (2) Hepatic lesion: Discharge Exam ROS-No Headache, No Visual Changes, No Nausea, No Vomiting, No Fever, No Chills, No Neck Pain or Stiffness, No Chest Pain, No Palpitations, No SOB, No WEAVER, No Cough, No Sputum, No Wheezing, Mild Abdominal Pain, No Diarrhea, No Hematemesis, No Hemoptysis, No Unexpected Weight Loss, No Flank pain, No Melena, No Hematochezia, No Frequency, No Urgency, No Burning, No Hematuria, No Rashes, No Diaphoresis. Appetite is Normal Physical Exam Gen-AAO x 3, NAD, Afebrile Head-NCAT, EOMI, PERRLA, Anicteric Sclera, No Posterior Pharyngeal Erythema Neck-Supple, No JVD, No Thyromegaly, No Masses, No LAD, No Bruits Lungs-Clear to Auscultation Bilaterally, No Rales, No Rhonchi, No Wheezing, No Crepitus Chest-No S4, +S1, +S2, No S3, No Murmurs, No Rubs, No Gallops, No Ectopy Abdomen-Soft, Bowel Sounds Present, Mildly Tender, Non Distended, No Hepatomegaly, No Splenomegaly, No Palpable Masses, No Rebound, No Rigidity, No Guarding Musculoskeletal-Full Range of Motion Bilaterally, No CVAT Extremities-No Cyanosis, No Clubbing, No Edema Nuero-Cranial Nerves II-XII grossly intact, Motor WNL, DTRs WNL, Strength WNL, Non Focal Psych-Normal Mood Discharge Data Allergies Allergy/AdvReac Type Severity Reaction Status Date / Time ciprofloxacin AdvReac Severe VIOLENT Verified 01/27/21 18:32 VOMITING POLLEN Allergy Intermediate RUNNY Uncoded 01/27/21 18:32 NOSE, SNEEZING Consultations 01/27/21 17:47 ED Decision to Admit Stat 01/27/21 22:20 Consult General Surgery Routine Ordered Studies 01/28/21 12:49 US gallbladder Routine 01/28/21 22:20 MR abdomen wo/w con Routine Current Diagnoses Diverticulitis of intestine, part unspecified, with perforation and abscess without bleeding (01/27/21) Liver disease, unspecified (01/27/21) Allergies ciprofloxacin Adverse Reaction (Severe, Verified 01/27/21 18:32) VIOLENT VOMITING POLLEN Allergy (Intermediate, Uncoded 01/27/21 18:32) RUNNY NOSE, SNEEZING Height/Weight/Isolation Height 5 ft 6 in Weight 82 kg Chemistry 01/31/21 02/01/21 08:12 06:54 Sodium 141 143 Potassium 3.6 3.5 Chloride 110 H 113 H Carbon Dioxide 25 25 Anion Gap 6.0 5.0 BUN 3 L 4 L Creatinine 0.81 0.73 Glucose 91 97 Hospital Course (1) Diverticulitis of intestine with perforation: Patent is a 50 yr female present with right sided abdominal pain x 2 days Diverticulitis with intestinal perforation Rule out acute cholecystitis - CT ABD:Findings consistent with acute sigmoid diverticulitis with contained perforation. Several locules of extraluminal gas and a 1.8 cm gas and fluid containing collection suggestive of a developing peridiverticular abscess although this contains predominantly gas. 2.4 cm central hepatic lesion which demonstrates probable enhancement. This is not overtly suspicious but is indeterminate and a nonemergent liver MRI with and without contrast is recommended. Given diverticulitis, a hepatic abscess is within the differential although considered less likely. MRI will likely better differentiate between these two possibilities. -Gall Bladder USD:The gallbladder is distended with a thickened and edematous wall. No shadowing gallstones are identified and a sonographic Au sign is reportedly absent. Findings are equivocal for acute acalculous cholecystitis wh ich is not excluded. If there is strong clinical concern for acute cholecystitis a nuclear hepatobiliary scan could be obtained to assess for patency of the cystic duct. The 2.6 cm lobulated lesion in the right lobe is homogeneously echogenic, further supporting that this likely represents a benign hemangioma. -No indication for HIDA scan given no change in management -Blood cultures: Negative to date -DC on Augmentin and Flagyl (2) Hepatic lesion: Chronic Hepatic lesion as per patient CT as above --ABD MRI:The gallbladder is distended, and there is mild gallbladder wall thickening/edema. If there is clinical/laboratory concern for acute cholecystitis a right upper quadrant ultrasound should be considered. There is an indeterminant lobular appearing 2.6 cm lesion in the right lobe of the liver as detailed above. This is pathologically indeterminant, but is not consistent with an abscess. This is nonaggressive appearing and may represent a slightly atypical hemangioma. A 3 month follow-up MRI is recommended for reassessment. There is a 1.7 cm ovoid T2 hyperintense lesion suggested in the right breast. This is not well evaluated and may represent a cyst. Nonemergent follow-up with mammography is recommended. -Follow up as outpatient DVT Px: Lovenox SQ Code Status Full Code DC home today on Augmentin and Flagyl for a 10 day course, f/u c Surgery in 2 weeks Total Time Total Time Spent Total Time Spent (In Minutes): 45 mins Total Time Includes: Examination of the Patient, Discharge Planning, Medication Reconciliation and Communication With Other Providers Discharge Plan Discharge Items Patient Disposition: Home - Self-Care Reason For Visit: PERFORATED DIVERTICULITIS Discharge Diagnosis: (1) Diverticulitis of intestine with perforation: (2) Hepatic lesion: Condition on Discharge: Good Health Concerns: Recurrence before surgery Activity: Resume your previous activity Lifting: Gradually increase as tolerated Bathing: No limitations Sexual Activity: When tolerated Driving/Machine Use: No limitations Weightbearing: Full weightbearing Non-emergency contact: Primary Care Provider and Surgeon Call non-emergency contact if: you have any medication questions and your symptoms worsen Follow-up/Referrals: Javon Hansen DO, FACS [Physician] - (Please call to schedule follow up in clinic within 2 weeks) Davie Barnett DO [Primary Care Provider] - (Date & Time 02/03/2021 10:20 AM Provider Davie Barnett DO [facility] ) Diet: Regular Diet Comment: Advance your diet slowly, if you get abd pain stay on clears until gone Addtl Attending Provider Instructions: As above Pending Studies at Discharge: No Stand-Alone Forms: [facility] [place] [facility] [employer], Smoking Cessation Medications and DC Order Prescriptions: New oxycodone 5 mg Tablet 5 mg PO Q4H PRN (Reason: pain) Qty: 30 RF: 0 amoxicillin-pot clavulanate 875-125 mg tablet 1 tab PO Q12H Qty: 10 RF: 0 metronidazole 500 mg tablet 500 mg PO BID 5 Days Qty: 10 RF: 0 Continued cetirizine 10 mg Tablet 10 mg PO DAILY PRN (Reason: Nasal Congestion) RF: 0 Discontinued amoxicillin-pot clavulanate 875-125 mg tablet 1 tab PO BID RF: 0 Discharge Orders: Discharge Order (Routine); Ordered 02/01/21 Ordered By: Arturo Bailey Admission Data Admit Date/Time: 01/27/21 18:22 Attending Provider: Arturo Bailey Admit Provider: Frank Mendez Primary Care Provider: Davie Barnett Other Providers: Frank Mendez ; Javon Hansen
== END 2021-02-01 13:20 | disposition home or self-care (01) | DRG 392 ==
LOC: ED 16:45 → 2N 18:22 → SUATTDRO 18:22 → 2N 22:14